=== PATIENT | female | born 1985 ===

== ENCOUNTER 2017-06-03 19:33 | Emergency (ER) | payer SELFPAY ==
[2017-06-03 21:01] VITALS: BP 148/97; PULSE 90; RESP 20; TEMP 98.9; O2SAT 100
--- NOTE | 2017-06-03 23:07 | C.PDOC ---
History Of Present Illness Patient is a 31 y/o female who presents to the ED with a complaint of sore throat, cough, headache body aches, difficulty swallowing for the last 1 day. 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 Patient has no other physical complaints at this time. 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[employer]) History/Exam Limitations: no limitations Onset/Duration Of Symptoms: Days (1 day) Current Symptoms Are (Timing): Still Present Location Of Pain: Throat, Diffuse Myalgias, Headache Associated Symptoms: Sore Throat, Myalgias Recent travel outside of the [place]: No Past Medical History Vital Signs: Last Vital Signs Temp 98.9 F 06/03/17 20:58 Pulse 90 06/03/17 20:58 Resp 20 06/03/17 20:58 BP 148/97 H 06/03/17 20:58 Pulse Ox 100 06/04/17 04:15 - Medical History PMH: No Chronic Diseases Surgical History: No Surg Hx Family History: States: No Known Family Hx - Social History Hx Tobacco Use: No Hx Alcohol Use: No Hx Substance Use: No - Immunization History Hx Tetanus Toxoid Vaccination: No Hx Influenza Vaccination: No Hx Pneumococcal Vaccination: No Review Of Systems Constitutional: Positive for: Malaise ENT: Positive for: Throat Pain (sore throat) Respiratory: Positive for: Cough Neurological: Positive for: Headache Physical Exam - Physical Exam Appears: Non-toxic, Other (uncomfortable) Ear(s): Bilateral: Normal Throat: Other (bilateral tonsillary enlargement with exudates) Neck: Supple, Other (submandibular node tenderness ) Cardiovascular: Rhythm Regular, No Murmur Respiratory: Normal Breath Sounds, No Rales, No Rhonchi, No Wheezing Gastrointestinal/Abdominal: Soft, No Tenderness ED Course And Treatment O2 Sat by Pulse Oximetry: 100 Progress Note: Tylenol and Amoxicillin administered. Medical Decision Making Medical Decision Making: pt with one day sore throat, cough, headache body aches, difficulty swallowing. +exudative pharyngitis. d/c with tylenol tamilfuu and amox Disposition Counseled Patient/Family Regarding: Diagnosis, Need For Followup, Rx Given - Disposition Referrals: [facility] [Outside] Disposition: HOME/ ROUTINE Disposition Time: 23:18 Condition: STABLE Additional Instructions: Por favor, tome Tamiflu, tylenol y amoxicilina segn lo prescrito. Amy g rgaras varias veces al da con agua salada tibia. Aumenta la ingesta de l quidos. aumentar el reposo en cama. Amy un seguimiento en la clnica mdica en unos stafford. Regrese a la rj de emergencias por cualquier sntoma peor. Please take Tamiflu, tylenol and amoxicillin as prescribed. Gargle several times a day with warm salty water. Increase fluid intake,. increase bed rest. Follow up in medical clinic in a few days. Return to ER for any worse symptoms. Por favor, tome Tamiflu, tylenol y Prescriptions: Acetaminophen [Tylenol 325mg tab] 650 mg PO Q6 #30 tab Amoxicillin 500 mg PO TID #20 tablet Oseltamivir Phosphate [Tamiflu] 75 mg PO BID #10 capsule Instructions: Pharyngitis (ED), Influenza (ED) Forms: [employer] (Thai), [employer] (Bolivian), Gen Discharge Inst Bolivian Print Language: HUNGARIAN - Clinical Impression Clinical Impression: Influenza-like illness, Pharyngitis - Scribe Statement The provider has reviewed the documentation as recorded by the Scribe Martina Spring All medical record entries made by the Scribe were at my direction and personally dictated by me. I have reviewed the chart and agree that the record accurately reflects my personal performance of the history, physical exam, medical decision making, and the department course for this patient. I have also personally directed, reviewed, and agree with the discharge instructions and disposition.
== END 2017-06-03 23:35 | disposition home or self-care (01) ==
LOC: C.ER 19:33
DX: J11.1 Influenza due to unidentified influenza virus with other respiratory manifestations (principal)